=== PATIENT | male | born 1940 | race Caucasian/White ===

== ENCOUNTER → 2018-11-13 | Day surgery (SDC) | payer OTHER ==
[~2018-11-13] MED LIST: BELLADONNA/OPIUM 30 MG SUPP RC ONE; CLINDAMYCIN 300MG 50 ML IV ONE; DEXAMETHASONE SOD PHOS INJ 4 MG/ML VIAL ONE; GENTAMICIN 80MG/NS 100 ML 100 ML IV ONE; IOPAMIDOL 610MG/1ML 300 MG/ML VIAL IV ONE; LIDOCAINE HCL 2% LOCAL INJ 5 ML SDV VIAL INJ ONE; MEPERIDINE HCL INJ 25 MG/ML VIAL ONE; ONDANSETRON HCL INJ 2MG/ML 2ML 2 MG/ML VIAL ONE; PIPER-TAZ 3.375 GM 50 ML ONE; PROPOFOL IV EMULSION 10 MG/ML 20 ML VIAL ONE; SEVOFLURANE INHAL SOLN 250 ML PEN BTL ONE
[2018-11-13 15:30] VITALS: BP 140/93
--- NOTE | 2018-11-13 17:53 | Diagnostic Imaging Report ---
Bilateral retrograde urography Indications: Rising PSA ^20181113 ^1234 ^C-ARM RETROGRADE PYELOGRAMS Comparison: None RADIATION DOSE: Fluoroscopy Time: 00:00:25 hh:mm:ss Dose (Kerma) Area Product: 295.99 cGycm2 Air Kerma ([place]) value has been reviewed. It is below the limits set by the Radiation Protocol Committee (RPC) committee. Findings: Contrast was injected into the left ureter in a retrograde fashion. The caliber of the left ureter appear normal. Left renal collecting system contains a spherical filling defect in the pelvis suggestive of an air bubble. Normal morphology of the calyces and infundibula. Contrast was injected into the right ureter in a retrograde fashion.The caliber of the right ureter appear normal. Right renal collecting system filled unremarkably. IMPRESSION: Unremarkable bilateral retrograde urography. Signed by: Dr. Pricilla Sanchez MD on 11/13/2018 5:49 PM
--- NOTE | 2018-11-13 17:56 | Diagnostic Imaging Report ---
US guidance for prostate biopsy HISTORY: Rising PSA TECHNIQUE: Ultrasound guidance was provided to Dr. Omi Olivo for the purposes of a prostate biopsy. COMPARISON: None. FINDINGS: Prostate measures 2.8 x 3.7 x 3.6 cm (volume is 18.8 cc). There are calcifications in the transition zone. No defined soft tissue mass. Visualized portions of the seminal vesicles are normal in morphology. IMPRESSION: As above. Signed by: Dr. Pricilla Sanchez MD on 11/13/2018 5:52 PM
--- NOTE | 2018-12-14 10:33 | Operative Report ---
DATE OF PROCEDURE: 11/13/2018 SURGEON: Omi Olivo MD PREOPERATIVE DIAGNOSES: 1. Elevated PSA. 2. Chronic renal insufficiency. POSTOPERATIVE DIAGNOSES: 1. Elevated PSA. 2. Chronic renal insufficiency. OPERATION PERFORMED: 1. Prostate ultrasonography interpretation. 2. Interpretation of ultrasound guidance for needle biopsies. 3. Needle biopsies of the prostate (surgery performed for the elevated PSA). 4. Cystourethroscopy with bilateral ureteral catheterization and retrograde ureteropyelography (said procedure performed to evaluate the upper tracts in light of the renal insuffiencey). 5. Interpretation of retrograde ureteropyelography. 6. Supervision of fluoroscopy. No etiology is present. ANESTHESIA: General. COMPLICATIONS: None. CLINICAL SUMMARY: Nnamdi Berry is an 78-year-old man with the above preoperative diagnoses. He was brought for the above procedures. He has BPH and incomplete bladder emptying. He is aware of the risks of bleeding, infection, injury to adjacent structures, need for additional procedures, and elected to proceed. PROCEDURE IN DETAIL: Informed consent was verified. Nnamdi Berry was properly identified, taken to the operating room, and placed on the cystoscopy table in supine position. Anesthesia was uneventfully begun. The patient was then carefully and gently repositioned in the dorsal lithotomy position with all pressure points well padded. Digital rectal examination revealed a prostate that was 25 to 30 grams in size by estimation with finger that had hard right base. Real-time ultrasonography was performed. The prostate measured approximately 19 mL in size. There were heavy calcifications noted throughout the prostate. No specific hypoechoic lesions were identified. With ultrasonography guidance, needle biopsies of the prostate and multiple biopsies were taken at each side, 6 different total sites were sent. These biopsies were distinguished right versus left and base versus mid versus apex. Following obtaining the biopsies, the patient's genitalia were prepared and draped in usual sterile fashion. A 22.5-[place]ian cystoscope sheath with visual obturator in place was atraumatically inserted into the patient's urethra. It was guided unremarkably into the urethra through the normal sphincteric region through the prostate bed. It was significant for obstructive BPH in the region of the patient's bladder, which exhibited at least grade 1 trabeculations. No suspicious mucosal lesions were identified. There were no tumors noted. A ureteral catheter was used to cannulate each ureter and retrograde ureteropyelography was performed. Interpretation of Retrograde Ureteropyelography: Contrast was instilled in a retrograde fashion bilaterally. There were no tumors, no stones, and no diverticula. Unobstructed drainage was observed bilaterally fluoroscopically. The patient's bladder was then drained and cystoscope was withdrawn. The patient was uneventfully reversed from anesthesia and taken to the recovery room in stable condition. There were no complications to the procedure. He tolerated the procedure well. Exclusive postoperative instructions were given. We will follow the patient up in the office. Omi Olivo MD [facility]/MODL /[id number]
== END | disposition home or self-care (01) ==
LOC: OR 11:14
PROVIDERS: ATTEND Urology
DX: C61 Malignant neoplasm of prostate (principal); I12.9 Hypertensive chronic kidney disease with stage 1 through stage 4 chronic kidney disease, or unspecified chronic kidney disease; N18.9 Chronic kidney disease, unspecified; N40.1 Benign prostatic hyperplasia with lower urinary tract symptoms; N13.8 Other obstructive and reflux uropathy; R39.14 Feeling of incomplete bladder emptying; N32.89 Other specified disorders of bladder; J45.909 Unspecified asthma, uncomplicated; Z85.46 Personal history of malignant neoplasm of prostate; Z87.891 Personal history of nicotine dependence
CPT/HCPCS: 52005; 55700; 74420; 76872; 88305; 93005; C1758; J1100; J1580; J2001; J2175; J2405; J2543; J2704; Q9967